=== PATIENT | male | born 1960 ===

== ENCOUNTER 2019-01-14 10:53 | Emergency (ER) | payer OTHER ==
[2019-01-14 11:03] VITALS: BP 149/100; PULSE 102; RESP 20; TEMP 98.6; O2SAT 95
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
--- NOTE | 2019-01-14 13:16 | RAD ---
Date of service: 01/14/2019 PROCEDURE: Left Knee Radiographs. HISTORY: Pain. COMPARISON: None. TECHNIQUE: 2 views obtained. FINDINGS: BONES: No fracture. JOINTS: Arthrosis medial femoral tibial compartment most notably affected. JOINT EFFUSION: Small effusion suggested OTHER FINDINGS: None. IMPRESSION: Arthrosis with small effusion. No fracture or lytic lesion noted.
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
--- NOTE | 2019-01-14 13:26 | RAD ---
Date of service: 01/14/2019 PROCEDURE: Cervical Spine Radiographs. HISTORY: Pain. COMPARISON: None available. TECHNIQUE: 3 views obtained. FINDINGS: BONES: Alignment maintained. No fracture. Dens Intact. C7 right cervical rib. Apophyseal joint hypertrophy most pronounced cyst left C5-6 and C6-7. DISC SPACES: Narrowed C4-5 and C5-6 most notably. SOFT TISSUES: Normal. No prevertebral soft tissue swelling. OTHER FINDINGS: None. IMPRESSION: No fracture or subluxation. Degenerative changes as above.
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
== END 2019-01-14 13:37 | disposition home or self-care (01) ==
LOC: C.ER 10:53
DX: M25.511 Pain in right shoulder (principal); M25.562 Pain in left knee; M54.2 Cervicalgia; M54.5 Low back pain; E78.5 Hyperlipidemia, unspecified; I10 Essential (primary) hypertension